=== PATIENT | female | born 1960 | race Caucasian/White ===

== ENCOUNTER 2019-08-10 08:44 | Emergency (ER) | payer OTHER ==
--- NOTE | 2019-08-10 09:18 | EDM.PDOC ---
ED HPI GENERAL MEDICAL PROBLEM - General Chief Complaint: Eye Problems Stated Complaint: SOMETHING IN R EYE Time Seen by Provider: 08/10/19 08:55 Source of Information: Reports: Patient History Limitations: Reports: No Limitations - History of Present Illness INITIAL COMMENTS - FREE TEXT/NARRATIVE: She comes into the emergency department with complaint of a right eye injury. Patient states that she was mowing the lawn approximately 2 days ago and a renetta of wind came up and a large amount of particles went into her right eye. She states that she started having irritation and watery eyes instantly. She tried to rinse her eyes out that night and states that it has continued to become irritated. This morning she woke up and it was more irritated, red, swollen, and had "gunk" that prevented the eye opening. Patient denies any changes in her vision, dizziness, headache, increased eye pressure, or loss of vision. Patient denies any other changes or concerns. Onset: Sudden Quality: Reports: Sharp Severity: Mild Improves with: Reports: None Worsens with: Reports: None Associated Symptoms: Reports: No Other Symptoms Right Eye Pain Score (Numeric/FACES): 8 - Related Data Allergies Allergy/AdvReac Type Severity Reaction Status Date / Time No Known Allergies Allergy Verified 08/10/19 08:59 Home Meds: Home Meds Lutein 10 mg PO DAILY 08/10/19 [History] Multivitamin [Multi-Vitamin Daily] 1 each PO DAILY 08/10/19 [History] Past Medical History HEENT History: Reports: Cataract Neurological History: Reports: CVA Social & Family History - Tobacco Use Smoking Status *Q: Current Every Day Smoker Years of Tobacco use: 20 Packs/Tins Daily: 0.5 - Recreational Drug Use Recreational Drug Use: No ED ROS GENERAL - Review of Systems Review Of Systems: See Below Constitutional: Reports: No Symptoms HEENT: Reports: Eye Discharge, Eye Pain Respiratory: Reports: No Symptoms Cardiovascular: Reports: No Symptoms Endocrine: Reports: No Symptoms GI/Abdominal: Reports: No Symptoms : Reports: No Symptoms Musculoskeletal: Reports: No Symptoms Skin: Reports: No Symptoms Neurological: Reports: No Symptoms Psychiatric: Reports: No Symptoms Hematologic/Lymphatic: Reports: No Symptoms Immunologic: Reports: No Symptoms ED EXAM GENERAL W FULL EYE - Physical Exam Exam: See Below Exam Limited By: No Limitations General Appearance: Alert, WD/WN, No Apparent Distress Visual Acuity (R) 20/: 20 Visual Acuity (L) 20/: 20 With Correction: No Eyelids: Bilateral: Normal Appearance Conjunctiva & Sclera: Right: Injected, Left: Normal Appearance Cornea Exam: Right: Corneal Abrasion Extraocular Movements: Bilateral: Intact Pupillary Size: Bilateral: 2 mm Pupillary Reaction: Bilateral: Brisk Anterior Chamber: Bilateral: Normal Appearance Posterior Chamber: Bilateral: Normal Funduscopic Ears: Normal External Exam, Normal Canal, Hearing Grossly Normal, Normal TMs Nose: Normal Inspection, Normal Mucosa, No Blood Throat/Mouth: Normal Inspection, Normal Lips, Normal Oropharynx, Normal Voice, No Airway Compromise Head: Atraumatic, Normocephalic Neck: Normal Inspection, Supple, Non-Tender, Full Range of Motion Respiratory/Chest: No Respiratory Distress, No Accessory Muscle Use, Chest Non- Tender Cardiovascular: Normal Peripheral Pulses, Regular Rate, Rhythm, No Edema Extremities: Normal Inspection, Normal Range of Motion, Normal Capillary Refill Neurological: Alert, Oriented, CN II-XII Intact, Normal Gait Psychiatric: Normal Affect, Normal Mood Skin Exam: Warm, Dry, Intact, Normal Color Course - Vital Signs Last Recorded V/S: Last Vital Signs Temp 36.6 C 08/10/19 08:59 Pulse 85 08/10/19 08:59 Resp 16 08/10/19 08:59 BP 141/69 H 08/10/19 08:59 Pulse Ox 96 08/10/19 08:59 - Orders/Labs/Meds Orders: Active Orders 24 hr Category Date Time Status Proparacaine [Proparacaine 0.5% Ophth Soln] Med 08/10/19 09:20 Ordered 1 ml EYERT ASDIRECTED PRN Medication Orders Proparacaine HCl (Proparacaine 0.5% Ophth Soln) 1 ml EYERT ASDIRECTED PRN PRN Reason: Other Last Admin: 08/10/19 09:24 Dose: 1 drop Meds: Medications Generic Name Dose Route Start Last Admin Trade Name Freq PRN Reason Stop Dose Admin Proparacaine HCl 1 ml 08/10/19 09:20 08/10/19 09:24 Proparacaine 0.5% Ophth Soln EYERT 1 drop ASDIRECTED PRN Administration Other Discontinued Medications Generic Name Dose Route Start Last Admin Trade Name Freq PRN Reason Stop Dose Admin Fluorescein Sodium 1 mg 05/25/20 09:08 08/10/19 09:24 Ful-Nadia EYERT 08/10/19 09:09 1 mg ONETIME ONE Administration Polymyxin/Trimethoprim Sulfate 1 ml 08/10/19 09:19 08/10/19 09:24 Polytrim Ophth Soln EYERT 08/10/19 09:20 1 drop ONETIME ONE Administration Departure - Departure Time of Disposition: 09:30 Disposition: Home, Self-Care 01 Condition: Good Clinical Impression: Corneal abrasion Qualifiers: Encounter type: initial encounter Laterality: right Qualified Code(s): S05.01XA - Injury of conjunctiva and corneal abrasion without foreign body, right eye, initial encounter - Discharge Information *PRESCRIPTION DRUG MONITORING PROGRAM REVIEWED*: Not Applicable *COPY OF PRESCRIPTION DRUG MONITORING REPORT IN PATIENT DOROTHEA: Not Applicable Instructions: Polymyxin B; Trimethoprim eye drops, solution, Corneal Abrasion, [id number] Referrals: Dionne Faust MD [Primary Care Provider] - Forms: ED Department Discharge Additional Instructions: 1. take eye drops to eye 2 drops 4 times a day for 5 days 2. rest 3. increase your water intake 4. Continue all at home medications 5. Activity and diet as tolerated 6. Can take over the counter Tylenol or ibuprofen for any pain or discomfort 7. Follow up with PCP or eye doctor if symptoms continue, return, or progress 8. Call with any questions or concerns Sepsis Event Note - Evaluation Sepsis Screening Result: No Definite Risk - Focused Exam Vital Signs: Vital Signs Temp Pulse Resp BP Pulse Ox 08/10/19 08:59 36.6 C 85 16 141/69 H 96 Date Exam was Performed: 08/10/19 Time Exam was Performed: 09:44 - My Orders Last 24 Hours: My Active Orders 08/10/19 09:20 Proparacaine [Proparacaine 0.5% Ophth Soln] 1 ml EYERT ASDIRECTED PRN - Assessment/Plan Last 24 Hours: My Active Orders 08/10/19 09:20 Proparacaine [Proparacaine 0.5% Ophth Soln] 1 ml EYERT ASDIRECTED PRN Assessment:: 1. right eye injury 2. Corneal abrasion Plan: 1. Proparacaine drop to the eye for pain 2. Fluorecin strip with saline to the eye for examination 3. Florescent lamp examination 4. Manual Q-tip examination of the eye with removal of any remaining particles. 5. Patient and nursing staff was updated regarding the plan of care 6. Education provided the patient regarding activity, diet, rest, over-the- counter medication modalities, and follow-up care was provided 7. Patient and family are agreeable to the above plan of care 8. All questions and concerns were addressed with the patient and family prior to discharge
[2019-08-10] MEDS: Fluorescein 1 MG Ophth Strip EYERT ONE (09:24)
[2019-08-10] MEDS: Proparacaine 0.5% Ophth Soln 15 ML Bottle EYERT PRN (09:24)
[2019-08-10] MEDS: Polymyxin B/Trimethoprim 10 ML Bottle EYERT ONE (09:24)
== END 2019-08-10 09:45 | disposition home or self-care (01) ==
LOC: VM.ED 08:44
DX: S05.01XA Injury of conjunctiva and corneal abrasion without foreign body, right eye, initial encounter (principal); F17.210 Nicotine dependence, cigarettes, uncomplicated; Z86.73 Personal history of transient ischemic attack (TIA), and cerebral infarction without residual deficits
CPT/HCPCS: 99283; 99283-GF; A9270-GY

== ENCOUNTER 2021-11-12 20:39 | Emergency (ER) | payer BC ==
[2021-11-12] MEDS ORDERED: Sodium Chloride 0.9% 1,000 ML IV SCH (21:00)
[2021-11-12] MEDS ORDERED: Sodium Chloride 0.9% 10 ML Syringe FLUSH PRN (21:00)
[2021-11-12] MEDS ORDERED: LORazepam 2 MG/ML SDV IVPUSH ONE (21:04)
[2021-11-12] MEDS ORDERED: GI Cocktail Oral Solution 30 ML PO ONE (21:04)
[2021-11-12 21:40] LABS: ANION GAP 14.8 mmol/L (5-15); CHLORIDE,CL 106 mmol/L (98-107); ESTIMATED GFR 64 mL/min (>=60); SODIUM,NA 143 mmol/L (136-145)
== END 2021-11-12 22:25 | disposition home or self-care (01) ==
LOC: VM.ED 20:39
DX: K21.00 Gastro-esophageal reflux disease with esophagitis, without bleeding (principal); F41.9 Anxiety disorder, unspecified
CPT/HCPCS: 36415; 71045; 74018; 80048; 83735; 84484; 93005; 93010; 96361; 96374; 99284; 99285-25; A9270-GY; J2060; J7030

== ENCOUNTER 2022-08-23 14:07 | Emergency (ER) | payer BC | END 2022-08-23 16:24 | disposition home or self-care (01) | LOC: VM.ED 14:07 | DX: S90.121A Contusion of right lesser toe(s) without damage to nail, initial encounter (principal); F17.210 Nicotine dependence, cigarettes, uncomplicated; Z91.040 Latex allergy status; W22.8XXA Striking against or struck by other objects, initial encounter | CPT/HCPCS: 73660-T9; 99283 ==

== ENCOUNTER → 2022-11-16 | Day surgery (SDC) | payer BC ==
[~2022-11-16] MED LIST: Midazolam 1 MG/ML 2 ML SDV ONE; Propofol 200 MG/20 ML SDV ONE; fentaNYL 100 MCG/2 ML SDV ONE
[2022-11-16] MEDS: Lactated Ringers 1,000 ML IV SCH (07:19)
== END ==
LOC: VM.SDS 07:05
PROVIDERS: ATTEND Student in an Organized Health Care Education/Training Program
DX: D12.5 Benign neoplasm of sigmoid colon (principal); G47.00 Insomnia, unspecified; I63.00 Cerebral infarction due to thrombosis of unspecified precerebral artery; K21.9 Gastro-esophageal reflux disease without esophagitis; F17.210 Nicotine dependence, cigarettes, uncomplicated; Z79.82 Long term (current) use of aspirin; Z79.899 Other long term (current) drug therapy; Z91.040 Latex allergy status
CPT/HCPCS: 00811; J2250; J2704; J3010; J7120

== ENCOUNTER 2024-03-09 08:17 | Emergency (ER) | payer SELFPAY ==
[2024-03-09] MEDS: Ondansetron 4 MG/2 ML SDV IVPUSH ONE (08:28)
[2024-03-09] MEDS: Lactated Ringers 1,000 ML IV ONE (08:30)
[2024-03-09 08:41] LABS: BASOPHILS PERCENT AUTO 0.3 % (0.2-1.2); EOSINOPHILS ABSOLUTE AUTO 0.5 x10^3/uL (0.0-0.5); EOSINOPHILS PERCENT AUTO 4.8 % (0.0-4.0); HEMOGLOBIN 14.3 g/dL (12.0-16.0); IMMATURE GRAN ABSOLUTE AUTO 0.02 x10^3/uL (0.00-0.07); LYMPHOCYTES ABSOLUTE AUTO 3.6 x10^3/uL (1.0-4.8); LYMPHOCYTES PERCENT AUTO 38.5 % (25.0-50.0); MEAN CORPUSCULAR HEMOGLOBIN 30.7 pg (26.0-32.0); MEAN CORPUSCULAR HGB CONC 34.9 g/dL (32.0-36.0); MONOCYTES ABSOLUTE AUTO 0.6 x10^3/uL (0.0-0.8); MONOCYTES PERCENT AUTO 6.4 % (2.0-11.0); NEUTROPHILS ABSOLUTE AUTO 4.7 x10^3/uL (1.8-7.7); NEUTROPHILS PERCENT AUTO 49.8 % (50.0-80.0); PLATELET COUNT,PLT 266 x10^3/uL (130-400); RED BLOOD CELL COUNT 4.66 x10^6/uL (4.00-5.50); WHITE BLOOD CELL COUNT,WBC 9.4 x10^3/uL (4.0-10.0)
[2024-03-09 08:45] LABS: APPEARANCE,URINE SLIGHTLY CLOUDY (CLEAR); BILIRUBIN,URINE NEGATIVE (NEGATIVE); COLOR,URINE YELLOW (YELLOW); GLUCOSE,URINE NEGATIVE (NEGATIVE); KETONES,URINE NEGATIVE (NEGATIVE); LEUKOCYTE ESTERASE,URINE TRACE (NEGATIVE); NITRITE,URINE POSITIVE (NEGATIVE); OCCULT BLOOD,URINE SMALL (NEGATIVE); PROTEIN,URINE NEGATIVE (NEGATIVE); UROBILINOGEN,URINE 0.2 EU/dL (0.2)
[2024-03-09 08:48] LABS: BACTERIA,URINE MODERATE /HPF (NOT SEEN); MUCUS,URINE OCCASIONAL /LPF (NOT SEEN); SQUAMOUS EPITHELIAL CELLS,UR FEW /HPF (NOT SEEN)
[2024-03-09 08:58] LABS: A/G RATIO 1.12; ALANINE AMINOTRANSFERASE,ALT 29 U/L (14-59); ALBUMIN 3.7 g/dL (3.4-5.0); ALKALINE PHOSPHATASE 106 U/L (46-116); AMYLASE 57 U/L (25-115); ASPARTATE AMNIOTRANSFERASE,AST 26 U/L (15-37); BILIRUBIN TOTAL 0.4 mg/dL (0.2-1.0); BLOOD UREA NITROGEN,BUN 11 mg/dL (7-18); CALCIUM 8.8 mg/dL (8.5-10.1); CARBON DIOXIDE,CO2 26 mmol/L (21-32); CHLORIDE,CL 106 mmol/L (98-107); GLUCOSE RANDOM 99 mg/dL (70-99); POTASSIUM,K 3.9 mmol/L (3.5-5.1); SODIUM,NA 142 mmol/L (136-145)
[2024-03-09 09:00] LABS: LACTIC ACID 1.5 mmol/L (0.4-2.0)
[2024-03-09 09:02] LABS: ANION GAP 13.9 mmol/L (5-15); C-REACTIVE PROTEIN < 0.50 mg/dL (<=0.50); ESTIMATED GFR 63 mL/min (>=60)
[2024-03-09] MEDS ORDERED: HYDROmorphone 0.5 MG/0.5 ML Syringe IVPUSH ONE (09:34)
[2024-03-09] MEDS: HYDROmorphone 1 MG/ML Syringe IVPUSH ONE (09:40)
== END 2024-03-09 10:19 | disposition home or self-care (01) ==
LOC: VM.ED 08:17
DX: K52.9 Noninfective gastroenteritis and colitis, unspecified (principal); N39.0 Urinary tract infection, site not specified; K64.5 Perianal venous thrombosis; Z86.73 Personal history of transient ischemic attack (TIA), and cerebral infarction without residual deficits; Z79.82 Long term (current) use of aspirin; Z79.899 Other long term (current) drug therapy; Z91.040 Latex allergy status
CPT/HCPCS: 80053; 81001; 82150; 83605; 83735; 85025; 86140; 87086; 87088; 87186; 96361; 96374; 96375; 99284; J1171; J2405; J7120

== ENCOUNTER 2024-11-06 18:10 | Emergency (ER) | payer BC | END 2024-11-06 19:34 | disposition home or self-care (01) | LOC: VM.ED 18:10 | DX: M79.672 Pain in left foot (principal); F17.210 Nicotine dependence, cigarettes, uncomplicated; Z91.040 Latex allergy status; Z79.82 Long term (current) use of aspirin; Z79.899 Other long term (current) drug therapy; Z86.73 Personal history of transient ischemic attack (TIA), and cerebral infarction without residual deficits | CPT/HCPCS: 73630-LT; 99283 ==